=== PATIENT | female | born 1955 | race Caucasian/White ===

== ENCOUNTER 2017-01-08 10:15 | Emergency (ER) | payer OTHER ==
[2017-01-08 10:07] LABS: URINE SOURCE CLEAN CATCH
[2017-01-08 10:16] LABS: URINE APPEARANCE CLOUDY; URINE BLOOD 4+ (NEG); URINE COLOR AMBER; URINE GLUCOSE NORM (NORM); URINE KETONE 1+ (NEG); URINE LEUKOCYTE ESTERASE 3+ (NEG); URINE NITRATE POS (NEG); URINE PROTEIN 2+ (NEG); URINE UROBILINOGEN 8 MG/DL (NORM)
[2017-01-08 10:21] LABS: URINE BILIRUBIN NEG (NEG)
[2017-01-08 10:34] LABS: URBCS1 AUWI INNUM /[HPF] (0-2); UWBCS1 AUWI INNUM (0-5)
[2017-01-08 10:35] LABS: CULTURE INDICATED? YES; URINE BACTERIA AUWI 1+ (NEGATIVE); URINE SQUAMOUS EPITHELIAL CELL OCCAS /[HPF]
== END 2017-01-08 10:47 | disposition home or self-care (01) ==
LOC: CFTX 10:15
PROVIDERS: Physician Assistant
DX: N30.00 Acute cystitis without hematuria (principal); I10 Essential (primary) hypertension; E03.9 Hypothyroidism, unspecified
CPT/HCPCS: 81003; 87086; 96372; 99284; J0696